=== PATIENT | female | born 1985 | race Native Hawaiian/Other Pacific Islander ===

== ENCOUNTER 2016-07-19 09:28 | Emergency (ER) | payer OTHER ==
[2016-07-19 09:30] VITALS: BMI 17.3
[2016-07-19 09:31] VITALS: TEMP 97.6; O2SAT 100
[2016-07-19] MEDS ORDERED: Sodium Chloride 0.9% 1,000 ML IV STA (10:01)
--- NOTE | 2016-07-19 10:05 | ED PDOC ---
Syncope/Near Syncope/Dizziness Time Seen by Provider: 07/19/16 09:48 Chief Complaint (Nursing): Syncope Chief Complaint (Provider): I passed out again History Per: Patient History/Exam Limitations: no limitations Onset/Duration Of Symptoms: Sudden Onset Current Symptoms Are (Timing): Better Activity At Onset Of Symptoms: Standing Associated Symptoms Preceding Syncopal Episode: Lightheadedness Seizure Or Post-ictal Symptoms: None Severity: Moderate Additional Complaint(s): 30yo female was taking path train to work, standing in crowded train after running to the train station from home, became dizzy and "fainted", caught by fellow passengers and denies fall or hitting the ground. States has passed out "many times before", denies chest pain, SOB, headache or change in vision. States her BP normally runs low, she has recently lost 4-5lbs unexpectedly. Denies fever, black or tarry stools, BRBPR or vomiting/diarrhea. States periods irregular always. No prior workup for recurrent syncope since childhood. pt also reports she removed a tick from her left upper leg yesterday after being in a [place] area [place] this [place]. Denies rash, fever or malaise. Unknown identity of tick. Past Medical History Reviewed: Historical Data, Nursing Documentation, Vital Signs Vital Signs: Last Vital Signs Temp 97.6 F 07/19/16 09:30 Pulse 74 07/19/16 09:54 Resp 16 07/19/16 09:54 BP 85/43 L 07/19/16 09:54 Pulse Ox 100 07/19/16 09:54 - Medical History PMH: No Chronic Diseases, Migraine - Surgical History Surgical History: No Surg Hx - Family History Family History: States: No Known Family Hx - Social History Current smoker - smoking cessation education provided: No Alcohol: None Drugs: Denies - Home Medications Home Medications: Ambulatory Orders Medication Instructions Recorded Doxycycline Monohydrate 200 mg PO ONCE #2 tablet 07/19/16 - Allergies Allergies/Adverse Reactions: Allergies Allergy/AdvReac Type Severity Reaction Status Date / Time No Known Allergies Allergy Verified 07/19/16 09:38 Review of Systems ROS Statement: Except As Marked, All Systems Reviewed And Found Negative Constitutional: Negative for: Fever, Chills Eyes: Negative for: Vision Change, Redness ENT: Negative for: Ear Discharge, Throat Pain, Throat Swelling Cardiovascular: Positive for: Light Headedness Respiratory: Negative for: Cough, Shortness of Breath Gastrointestinal: Negative for: Nausea, Vomiting Genitourinary Female: Negative for: Dysuria, Frequency, Vaginal Bleeding, Pelvic Pain Musculoskeletal: Negative for: Neck Pain, Shoulder Pain, Leg Pain Skin: Negative for: Rash Neurological: Positive for: Dizziness. Negative for: Weakness, Incoordination, Change in Speech, Seizures, Headache Psych: Negative for: Anxiety, Depression Physical Exam - Reviewed Nursing Documentation Reviewed: Yes Vital Signs Reviewed: Yes - Physical Exam Appears: Positive for: Non-toxic (petite frame, speech fluent without dysarthria ), No Acute Distress Head Exam: Positive for: ATRAUMATIC, NORMAL INSPECTION, NORMOCEPHALIC Skin: Positive for: Normal Color, Warm, DRY Eye Exam: Positive for: Normal appearance, EOMI, PERRL. Negative for: Periorbital swelling, Conjunctival injection, Scleral icterus ENT: Positive for: Normal ENT Inspection. Negative for: Pharyngeal Erythema Neck: Positive for: Normal, Painless ROM Cardiovascular/Chest: Positive for: Regular Rate, Rhythm. Negative for: Bradycardia, Tachycardia, Irregularly Irregular Respiratory: Positive for: CNT, Normal Breath Sounds Pulses-Radial (L): 2+ Pulses-Radial (R): 2+ Gastrointestinal/Abdominal: Positive for: Normal Exam, Bowel Sounds, Soft. Negative for: Tenderness, Guarding Back: Positive for: Normal Inspection Extremity: Positive for: Normal ROM Neurologic/Psych: Positive for: Alert, Oriented. Negative for: Motor/Sensory Deficits - Laboratory Results Result Diagrams: 07/19/16 10:28 07/19/16 10:28 - ECG O2 Sat by Pulse Oximetry: 100 Medical Decision Making Medical Decision Making: workup for syncope initiated. BP low but states can be normal for her. Check EKG, labs/lactate, CK and IVF bolus, patient monitor. Disposition - Clinical Impression Clinical Impression: Syncope, Tick bite - Disposition Referrals: Provider TBD, [Primary Care Provider] - Gianfranco Johnson MD [Staff Provider] - Additional Instructions: See airline pilot/first officer for further testing. Drink plenty of fluids. Return to ER for any new or worsening symptoms. Prescriptions: Doxycycline Monohydrate 200 mg PO ONCE #2 tablet Instructions: Syncope (ED) Forms: [employer] (Setswana)
[2016-07-19 10:40] LABS: BASO % 0.9 % (0.0-2.0); EOS # 0.2 K/uL (0.0-0.7); HEMATOCRIT 34.4 % (34.0-47.0); LYMPH # 1.9 K/uL (1.0-4.3); LYMPH % 34.2 % (20.0-40.0); MEAN CELL VOLUME 89.2 fl (81.0-99.0); MEAN CORPUSCULAR HEMOGLOBIN 28.5 pg (27.0-31.0); MEAN PLATELET VOLUME 8.9 fl (7.2-11.7); MONO # 0.4 K/uL (0.0-0.8); MONO % 7.7 % (0.0-10.0); NEUT # 2.9 K/uL (1.8-7.0); NEUT % 54.2 % (50.0-75.0); NRBC % 0.1 % (0.0-0.0); RED CELL DISTRIBUTION WIDTH 14.7 % (11.5-14.5); WHITE BLOOD COUNT 5.4 K/uL (4.8-10.8)
[2016-07-19 10:48] LABS: ALB/GLOB RATIO 1.2 (1.0-2.1); ALKALINE PHOSPHATASE 58 U/L (38-126); ALT/SGPT 27 U/L (9-52); AST/SGOT 23 U/L (14-36); BILIRUBIN,TOTAL 0.3 mg/dl (0.2-1.3); BLOOD UREA NITROGEN 10 mg/dl (7-17); CALCIUM 9.1 mg/dL (8.4-10.2); CARBON DIOXIDE 25 mmol/L (22-30); CHLORIDE 103 mmol/L (98-107); GFR AFRICAN-AMERICAN > 60; GLUCOSE,RANDOM 88 mg/dL (65-105); POTASSIUM 4.4 MMOL/L (3.6-5.0); SODIUM 136 mmol/l (132-148); TOTAL PROTEIN 7.2 G/DL (6.3-8.2)
[2016-07-19 11:17] VITALS: PULSE 60; RESP 18
[2016-07-19 12:18] VITALS: BP 97/57
--- NOTE | 2016-07-19 13:38 | CARD ---
APPROVED REPORT EKG Measurement Heart [id number] CO 130P22 [id number] <Conclusion> Normal sinus rhythm with sinus arrhythmia Normal ECG
== END 2016-07-19 13:50 | disposition home or self-care (01) ==
LOC: SUPCPDRO 09:28 → H.ER 09:28
DX: R55 Syncope and collapse (principal)